=== PATIENT | female | born 1975 | race Caucasian/White ===

== ENCOUNTER 2020-08-26 09:57 | Emergency (ER) | payer BC ==
[2020-08-26] MEDS ORDERED: HYDROmorphone 1 MG/ML Syringe IM ONE (12:00)
--- NOTE | 2020-08-26 12:05 | EDM.PDOC ---
ED HPI GENERAL MEDICAL PROBLEM - General Chief Complaint: Lower Extremity Injury/Pain Stated Complaint: RIGHT FOOT INJURY Time Seen by Provider: 08/26/20 11:50 Source of Information: Reports: Patient History Limitations: Reports: No Limitations - History of Present Illness INITIAL COMMENTS - FREE TEXT/NARRATIVE: 44 yo female from [place] of town stepped in a hole before arrival and heard a crack. Has pain to the R ankle only. Here for eval. Onset: Today, Sudden Onset Date: 08/26/20 Duration: Minutes: Location: Reports: Lower Extremity, Right Quality: Reports: Ache Severity: Moderate Improves with: Reports: Rest Worsens with: Reports: Movement Context: Reports: Trauma Associated Symptoms: Reports: No Other Symptoms Treatments FUR OPERATOR: Reports: Other (see below) (none) Right Ankle Pain Score (Numeric/FACES): 5 - Related Data Allergies Allergy/AdvReac Type Severity Reaction Status Date / Time latex Allergy Rash Verified 08/26/20 12:03 Home Meds: Home Meds Nebivolol HCl [Bystolic] 10 mg PO DAILY 08/26/20 [History] Review of Systems - Review of Systems Review Of Systems: See Below Constitutional: Reports: No Symptoms Musculoskeletal: Reports: Joint Pain (R ankle) Skin: Reports: No Symptoms Neurological: Reports: No Symptoms ED EXAM, GENERAL - Physical Exam Exam: See Below Exam Limited By: No Limitations General Appearance: Alert, WD/WN, No Apparent Distress, Obese Extremities: Limited Range of Motion (due to pain), Other (ankle visibly deformed slightly, medially and laterally. ). No: Normal Inspection, Normal Range of Motion, Non-Tender, No Pedal Edema Neurological: Alert, Oriented, CN II-XII Intact, Normal Cognition, No Motor/Sensory Deficits Psychiatric: Normal Affect, Normal Mood Skin Exam: Warm, Dry, Intact, Normal Color, No Rash ED TRAUMA EXTREMITY PROCEDURES - Splinting Right Lower Extremity Splint Site: L short leg posterior splint Pre-Procedure NV Status: Normal Post-Procedure NV Status: Normal Splint Material: Other (Ortho Glass) Splint Design: Posterior Applied & Form Fitted By: Nurse Provider Post-Splint Application NV Check: NV Status Normal, Good Position Complications: No Course - Vital Signs Last Recorded V/S: Last Vital Signs Temp 36.1 C 08/26/20 12:01 Pulse 86 08/26/20 12:01 Resp 18 08/26/20 12:01 BP 172/104 H 08/26/20 12:01 Pulse Ox 98 08/26/20 12:01 - Orders/Labs/Meds Orders: Active Orders 24 hr Category Date Time Status Ankle Min 3V Rt [CR] Stat Exams 08/26/20 12:01 Taken Meds: Medications Discontinued Medications Generic Name Dose Route Start Last Admin Trade Name Anna PRN Reason Stop Dose Admin Hydromorphone HCl 1 mg 08/26/20 12:00 08/26/20 12:13 Hydromorphone 1 Mg/Ml Syringe IM 08/26/20 12:01 1 mg ONETIME ONE Administration - Radiology Interpretation Free Text/Narrative:: R ankle [id number]-displaced distal fibula fx Departure - Departure Time of Disposition: 13:05 Disposition: Home, Self-Care 01 Condition: Fair Clinical Impression: Fracture of distal end of fibula Qualifiers: Encounter type: initial encounter Fracture type: closed Fracture morphology: other fracture Laterality: right Qualified Code(s): S82.831A - Other fracture of upper and lower end of right fibula, initial encounter for closed fracture - Discharge Information *PRESCRIPTION DRUG MONITORING PROGRAM REVIEWED*: No *COPY OF PRESCRIPTION DRUG MONITORING REPORT IN PATIENT DIEUDONNE: No Instructions: Nondisplaced Fibular Ankle Fracture Treated With Immobilization, Adult Referrals: PCP,None [Primary Care Provider] - Forms: ED Department Discharge Additional Instructions: Crutch walking and no weight bearing. Keep your R ankle elevated above your heart to reduce swelling. Wear your splint at all times. Take your X-rays to an appt later this week with orthopedics for casting. Use [place] as needed for pain relief with or without added ibuprofen. Sepsis Event Note (ED) - Evaluation Sepsis Screening Result: No Definite Risk - Focused Exam Vital Signs: Vital Signs Temp Pulse Resp BP Pulse Ox 08/26/20 12:01 36.1 C 86 18 172/104 H 98 - My Orders Last 24 Hours: My Active Orders 08/26/20 12:01 Ankle Min 3V Rt [CR] Stat - Assessment/Plan Last 24 Hours: My Active Orders 08/26/20 12:01 Ankle Min 3V Rt [CR] Stat
--- NOTE | 2020-08-27 11:07 | CR ---
Ankle Min 3V Rt CLINICAL HISTORY: Injury FINDINGS: The soft tissues are swollen. There is an oblique nondisplaced fracture of the distal fibula. There may be some mild widening of the tibiofibular joint. Ankle mortise is otherwise anatomic. Impression: Nondisplaced fracture distal fibula Questionable widening of the tib-fib joint space could represent ligamentous injury
== END 2020-08-26 13:17 | disposition home or self-care (01) ==
LOC: JP.ED 09:57
DX: S82.831A Other fracture of upper and lower end of right fibula, initial encounter for closed fracture (principal); Z91.040 Latex allergy status; Z79.899 Other long term (current) drug therapy; X50.9XXA Other and unspecified overexertion or strenuous movements or postures, initial encounter
CPT/HCPCS: 29515; 73610; 96372; 99283; J1170